=== PATIENT | female | born 1960 | race Caucasian/White ===

== ENCOUNTER 2019-12-09 20:00 | Inpatient (IN) | payer BC ==
[2019-12-09 21:58] VITALS: BMI 35.4
[2019-12-09] MEDS ORDERED: Labetalol HCl 100 MG/20 ML VIAL SLOW IVP PRN (21:58)
[2019-12-09] MEDS ORDERED: Acetaminophen 325 MG TAB PO PRN (21:58)
[2019-12-09] MEDS ORDERED: cloNIDine 0.1 MG TAB PO PRN (21:58)
[2019-12-09] MEDS ORDERED: hydrALAZINE 20 MG/ML VIAL SLOW IVP PRN (21:58)
[2019-12-09] MEDS ORDERED: HYDROcodone/Acetaminophen 5/325 mg Tablet PO PRN (21:58)
[2019-12-09] MEDS ORDERED: Guaifenesin DM 100-10/5 ML UDCUP PO PRN (21:58)
[2019-12-09] MEDS ORDERED: Electrolyte Replacement Protoc 1 EACH EACH FS SCH (22:00)
--- NOTE | 2019-12-09 22:11 | PDOC.HHP ---
Hospitalist HPI - History of Present Illness Abdominal pain History of Present Illness: Patient is a 59 year old female with PMH migraines, seizure disorder, history of stomach ulcers who presents as transfer from [place] [facility] for abdominal pain. She has gone to ED twice in last 2 days for abdominal pain, then left AMA, today presented again for same issue. Pain is sharp, epigastric, 6/10, constant, patient has not been able to hold down food for a week. She has a history of gastric ulcers, has been told to see GI but she has not followed up. She denies fevers, chills, melena, hematochezia, hematemesis. She denies nausea but if she eats anything she then vomits. No BM, but she thinks that is because of reduced PO intake. During her visits to [place] ER, she has had a RUQ US and a CT abdomen, which revealed fatty liver. Today at [place] ED, vitals unremarkable, labs significant for transaminitis with total bilirubin 2.4, AST 141, ALT 52, alkaline phosphatase 169. she recieved 2L IVF, sucralfate, protonix, reglan. They discussed case with GI Dr Luna who recommended EGD evaluation in morning by Dr Hammond, patient transferred here for GI consultation. Hospitalist ROS - Review of Systems Constitutional: denies: fever, chills, sweats, weakness, malaise, other Eyes: denies: pain, vision change, conjunctivae inflammation, eyelid inflammation, redness, other ENT: denies: ear pain, ear discharge, nose pain, nose discharge, nose congestion , mouth pain, mouth swelling, throat pain, throat swelling, other Respiratory: denies: cough, dry, shortness of breath, hemoptysis, SOB with excertion, pleuritic pain, sputum, wheezing, other Cardiovascular: denies: chest pain, palpitations, orthopnea, paroxysmal noc. dyspnea, edema, light headedness, other Gastrointestinal: reports: abdominal pain. denies: nausea, vomiting, diarrhea, constipation, melena, hematochezia, other Genitourinary: denies: dysuria, frequency, incontinence, hematuria, retention, other Musculoskeletal: denies: neck pain, shoulder pain, arm pain, back pain, hand pain, leg pain, foot pain Skin: denies: rash, lesions, cruz, bruising, other Neurological: denies: weakness, numbness, incoordination, change in speech, confusion, seizures, other All other systems reviewed; all pertinent +/- noted in HPI/Subj Hospitalist History - Past Medical History Other Medical History: migraines, seizure disorder, history of stomach ulcers - Past Surgical History Past Surgical History: reports: , Hysterectomy - Family History Family History: reports: no pertinent history - Social History Smoking Status: Former smoker Alcohol: reports: None Drugs: reports: none - Exam General Appearance: NAD, awake alert Eye: PERRL, anicteric sclera ENT: normocephalic atraumatic, no oropharyngeal lesions, moist mucosa Neck: supple, symmetric, no JVD, no thyromegaly, no lymphadenopathy, no carotid bruit Heart: RRR, no murmur, no gallops, no rubs, normal peripheral pulses Respiratory: CTAB, no wheezes, no rales, no ronchi, normal chest expansion, no tachypnea, normal percussion Gastrointestinal: soft, non-distended, normal bowel sounds, no palpable masses, no hepatomegaly, no splenomegaly, no bruit Gastrointestinal - other findings: mild diffuse tenderness to deep palpation Extremities: no cyanosis, no clubbing, no edema Skin: normal turgor, no lesions, no rashes Neurological: cranial nerve grossly intact, normal sensation to touch, no weakness, no focal deficits, no new deficit Musculoskeletal: normal tone, normal strength, no muscle wasting Psychiatric: normal affect, normal behavior, A&O x 3 Hospitalist Results - Labs Additional comment: all labs, imaging, ED documents reviewed from [facility], see HPI for pertinent positives Hospitalist H&P A/P - Plan Plan: Patient is a 59 year old female with PMH migraines, seizure disorder, history of stomach ulcers who presents as transfer from [place] [facility] for abdominal pain. # abdominal pain # history of stomach ulcers # transaminitis/acute liver failure transfer from [place] ED for epigastric pain x 1 week, unable to hold down food. Denies blood in stool or melena. at [place] ED she left AMA several times last few days, during those visits she had a RUQ US and a CT abdomen which revealed fatty liver. Today labs significant for transaminitis with tbili 2.4, AST 141, ALT 52, AKP 169. she recieved 2L IVF, sucralfate, protonix, reglan. They discussed case with GI Dr Luna who recommended EGD evaluation in morning by Dr Hammond, patient transferred here for GI consultation. She does have a history of stomach ulcers and did not follow up as recommended. - admit to floor - consult GI - protonix IV BID, continue carafate - PRN norco/morphine, deescalate as able - IVF - clear liquids, NPO past midnight - viral hepatitis panel # history of migraines # seizure disorder - resume home meds once med rec complete # DVT/GI ppx full code
[2019-12-09] MEDS: Sodium Chloride 0.9% 1,000 ML IV SCH (22:28)
[2019-12-09] MEDS ORDERED: Electrolyte Replacement Protocol FS PRN (22:30)
[2019-12-09] MEDS: Morphine 2 MG/ML VIAL SLOW IVP PRN (22:45)
[2019-12-09] MEDS ORDERED: Mag-Al 1200 mg/1200 mg/30 ML UDCUP PO PRN (23:57)
[2019-12-09] MEDS ORDERED: Morphine 2 MG/ML VIAL SLOW IVP SCH (23:59)
[2019-12-09] MEDS ORDERED: Mag-Al 1200 mg/1200 mg/30 ML UDCUP PO SCH (23:59)
[2019-12-10] MEDS: Morphine 2 MG/ML VIAL SLOW IVP PRN (04:42)
[2019-12-10] MEDS: Ondansetron PF 4 MG/2 ML Vial IVP PRN ×2 (04:48→18:24)
[2019-12-10 07:03] LABS: #Basophils 0.1 thou/uL (0.0-0.2); #Eosinphils 0.1 thou/uL (0.0-0.7); #Lymphocytes 1.3 thou/uL (1.20-3.40); #Monocytes 0.3 thou/uL (0.11-0.59); #Neutrophils 4.2 thou/uL (1.40-6.50); %Basophils 1.2 % (0.0-1.0); %Eosinophils 2.4 % (0.0-10.0); %Lymphocytes 21.4 % (21.0-51.0); %Monocytes 5.3 % (0.0-10.0); %Neutrophils 69.6 % (42.0-75.0); Hemoglobin 10.7 g/dL (12.0-16.0); Mean Corpuscular Hemoglobin 37.7 pg (27.0-31.0); Mean Platelet Volume 8.2 fL (7.4-10.4); Platelet Count 167 thou/uL (130-400); RBC Distribution Width 14.5 % (11.5-14.5); Red Blood Cell (RBC) Count 2.83 mill/uL (4.20-5.40); White Blood Cell (WBC) Count 6.1 thou/uL (4.8-10.8)
[2019-12-10] MEDS: Sucralfate 1 GM TAB PO SCH ×4 (07:14→21:28)
[2019-12-10] MEDS: Sodium Chloride 0.9% 1,000 ML IV SCH ×2 (07:18→17:14)
[2019-12-10 07:32] LABS: ALT (SGPT) 49 U/L (8-55); AST (SGOT) 144 U/L (5-34); Albumin 3.1 g/dL (3.5-5.0); Alkaline Phosphatase 157 U/L (40-110); Anion Gap 14 mmol/L (10-20); BUN (Urea Nitrogen) Less than 4 mg/dL (9.8-20.1); Bilirubin, Total 2.1 mg/dL (0.2-1.2); Calc. Creatinine Clearance 126 mL/min (70-130); Calcium 7.5 mg/dL (7.8-10.44); Carbon Dioxide 23 mmol/L (22-29); Chloride 101 mmol/L (98-107); Estimated GFR-MDRD Greater than 90; Glucose 84 mg/dL (70-105); Magnesium 2.1 mg/dL (1.6-2.6); Potassium 3.9 mmol/L (3.5-5.1); Protein, Total 6.5 g/dL (6.0-8.3); Sodium 134 mmol/L (136-145)
[2019-12-10 07:53] LABS: HBCM Index 0.14 S/CO (0-0.79); HBSAg Index 0.23 S/CO (0-0.99); Hep A IgM AB Non-Reactive (NonReactive); Hep A IgM S/CO 0.23 S/CO (0-0.79); Hep B Surf Ag Non-Reactive S/CO (NonReactive); Hep C IgG Ab Non-Reactive (NonReactive); Hep C Index 0.11 S/CO (0-0.79); Hepatitis B Core IgM Abs Non-Reactive (NonReactive)
[2019-12-10 08:58] LABS: MDiff Complete? YES; Macrocytosis MODERATE=16-30 cells (100X) (0-5/hpf); Platelet Morphology Comment Appears Adequate; Polychromasia SLIGHT = 2-3 cells (100X) (0-2/hpf)
[2019-12-10] MEDS ORDERED: Pantoprazole 40 MG VIAL IVP SCH (09:00)
[2019-12-10] MEDS ORDERED: PROPOFOL 200 MG/20 ML VIAL ONE (10:09)
[2019-12-10] MEDS ORDERED: EPHEDRINE 25 MG/5 ML SYRINGE ONE (10:09)
[2019-12-10] MEDS ORDERED: Succinylcholine Chloride 20 MG/ML 10 ml SYRINGE FS ONE (10:09)
[2019-12-10] MEDS ORDERED: Lidocaine 1% PF 5 ML VIAL ONE (10:09)
[2019-12-10] MEDS ORDERED: Midazolam HCl 2 mg/2 ml Vial ONE (10:44)
[2019-12-10] MEDS ORDERED: Fentanyl 100 MCG/2 ML VIAL ONE ×2 (11:17→12:18)
[2019-12-10] MEDS ORDERED: Ondansetron PF 4 MG/2 ML Vial ONE (12:05)
[2019-12-10] MEDS ORDERED: Promethazine HCl 25 MG/ML VIAL SLOW IVP PRN (12:11)
[2019-12-10] MEDS ORDERED: HYDROmorphone 2 MG/ML VIAL SLOW IVP PRN (12:11)
[2019-12-10] MEDS ORDERED: Meperidine HCl/PF 25 MG/ML VIAL SLOW IVP PRN (12:11)
[2019-12-10] MEDS ORDERED: Ketorolac Tromethamine 30 MG/ML VIAL IVP PRN (12:11)
[2019-12-10] MEDS ORDERED: Promethazine HCl 25 MG/ML VIAL IM PRN (12:11)
[2019-12-10] MEDS ORDERED: Ondansetron HCl/PF 4 MG/2 ML Vial IVP PRN (12:11)
[2019-12-10] MEDS: Pantoprazole 40 MG VIAL IVP SCH ×2 (13:05→21:28)
[2019-12-10] MEDS: Multivitamins, Adult 10 ML, Folic Acid 1 MG, Thiamine HCl 100 MG in Dextrose 5 %-0.45 %... IV SCH (14:57)
--- NOTE | 2019-12-10 15:37 | PDOC.HOSPP ---
- Subjective Encounter Date: 12/10/19 Encounter Time: 15:36 Subjective: Patient seen for follow-up regarding abdominal pain. Reports on and off abdominal pain. Denies fevers or chills. - Objective Vital Signs & Weight: Vital Signs (12 hours) Temp Pulse Resp BP Pulse Ox 12/10/19 11:45 98.0 F 76 20 143/80 H 94 L 12/10/19 08:00 98.4 F 71 20 111/77 95 12/10/19 04:40 98.2 F 71 18 129/81 95 Weight Admit Weight 194 lb 1.6 oz Weight 194 lb 1.6 oz I&O: 12/09/19 12/10/19 12/11/19 06:59 06:59 06:59 Intake Total 850 Balance 850 Result Diagrams: 12/10/19 06:44 12/10/19 06:44 Additional Labs: I reviewed patient's labs and MAR Hospitalist ROS - Review of Systems Constitutional: denies: fever, chills, sweats, weakness, malaise Cardiovascular: denies: chest pain, palpitations, orthopnea, paroxysmal noc. dyspnea, edema, light headedness Gastrointestinal: reports: abdominal pain. denies: nausea, vomiting, diarrhea, constipation, melena, hematochezia Genitourinary: denies: dysuria, frequency, incontinence, hematuria, retention Skin: reports: cruz. denies: rash, lesions, bruising All other systems reviewed; all pertinent +/- noted in HPI/Subj - Medication Medications: Active Medications Generic Name Dose Route Start Last Admin Trade Name Freq PRN Reason Stop Dose Admin Sodium Chloride 1,000 mls @ 100 mls/hr 12/09/19 22:15 12/10/19 07:18 Normal Saline 0.9% IV 1,000 mls .Q10H JONO Administration Multivitamins 10 ml/ Folic 1,011.2 mls @ 100 mls/hr 12/10/19 13:00 12/10/19 14:57 Acid 1 mg/ Thiamine HCl 100 mg IV 1,011.2 mls / Dextrose/Sodium Chloride Q24HR JONO Administration Ondansetron HCl 4 mg 12/09/19 21:58 12/10/19 04:48 Zofran IVP 4 mg Q6H PRN Administration Nausea/Vomiting, use 1st Pantoprazole Sodium 40 mg 12/10/19 09:00 12/10/19 13:05 Protonix IVP 40 mg Q12HR JONO Administration Sucralfate 1 gm 12/10/19 07:30 12/10/19 13:04 Carafate PO 1 gm ACHS JONO Administration - Exam General - other findings: Obese Eye: scleral icterus ENT: normocephalic atraumatic, no oropharyngeal lesions Neck: supple, symmetric, no thyromegaly, no lymphadenopathy Heart: RRR, no gallops, no rubs, normal peripheral pulses Respiratory: CTAB, no wheezes, no rales, no ronchi, normal chest expansion Gastrointestinal: soft, normal bowel sounds, no guarding, no rigidity, tender to palpation Extremities: no cyanosis Skin: no rashes Psychiatric: normal affect, normal behavior, oriented to person, oriented to place Hosp A/P (1) Abdominal pain Code(s): R10.9 - UNSPECIFIED ABDOMINAL PAIN Status: Acute (2) Transaminitis Code(s): R74.0 - NONSPEC ELEV OF LEVELS OF TRANSAMNS & LACTIC ACID DEHYDRGNSE Status: Chronic (3) Migraines Code(s): G43.909 - MIGRAINE, UNSP, NOT INTRACTABLE, WITHOUT STATUS MIGRAINOSUS Status: Chronic (4) Seizure disorder Code(s): G40.909 - EPILEPSY, UNSP, NOT INTRACTABLE, WITHOUT STATUS EPILEPTICUS Status: Chronic - Plan Status post EGD today, await findings. Continue IV PPI. Follow LFTs. Patient's INR was 1.8 on December 08, 2019. Work-up in progress to determine etiology of hepatic failure. Resume home medications once clarified.
[2019-12-10] MEDS ORDERED: hydrOXYzine Pamoate 25 mg Capsule PO PRN (15:41)
--- NOTE | 2019-12-10 16:39 | OP ---
DATE OF PROCEDURE: 12/10/2019 PREOPERATIVE DIAGNOSES: 1. Recurrent ER visits for epigastric pain. 2. Mildly elevated LFTs with normal ultrasound and CT scan except for fatty liver. POSTPROCEDURE DIAGNOSES: Normal EGD, antral biopsies taken for H pylori. RECOMMENDATIONS: 1. PPI therapy. 2. Workup abnormal liver enzymes. 3. Avoid alcohol. 4. Avoid NSAIDs. ANESTHESIA: TIVA. DESCRIPTION OF PROCEDURE: Patient explained the risks, benefits, possible complications of endoscopy including perforation, reaction to medication, aspiration. Informed consent was obtained. Patient was brought to the endoscopy suite, where she was sedated in a gradual fashion. Once she was comfortable, a bite block was placed in the incisural orifice. The endoscope was advanced into the esophagus, stomach, and second and third portions of the duodenum and slowly was removed. There was good visualization of the mucosa. There was no mass lesions or AV malformations. The esophagus, stomach, and duodenum were normal in first and second portions. There was normal stomach on retroflexion. There was normal distention of the stomach. There was mild antral gastritis. This would not explain the patient's symptoms. Biopsies were obtained for H pylori. The scope was removed. The patient tolerated the procedure well. There were no complications. Job ID: [id number]
[2019-12-10] MEDS: Promethazine HCl 12.5 MG in Sodium Chloride 0.9% 50 ML IVPB PRN (19:31)
[2019-12-10] MEDS ORDERED: Donepezil HCl 10 MG TAB PO SCH (21:00)
[2019-12-10] MEDS: cloNIDine 0.1 MG TAB PO SCH (21:41)
[2019-12-10] MEDS ORDERED: Lorazepam 2 MG/ML VIAL SLOW IVP SCH ×2 (22:30→22:45)
[2019-12-10] MEDS ORDERED: Morphine 2 MG/ML VIAL SLOW IVP SCH (22:30)
[2019-12-11] MEDS: Ondansetron PF 4 MG/2 ML Vial IVP PRN ×3 (00:22→13:02)
[2019-12-11] MEDS: Promethazine HCl 12.5 MG in Sodium Chloride 0.9% 50 ML IVPB PRN ×2 (01:20→08:22)
[2019-12-11] MEDS: Sodium Chloride 0.9% 1,000 ML IV SCH ×2 (01:50→15:50)
[2019-12-11] MEDS ORDERED: Simethicone Chewable 80 MG TAB PO PRN (03:29)
[2019-12-11] MEDS ORDERED: Simethicone Chewable 80 MG TAB PO SCH (03:30)
[2019-12-11 06:09] LABS: #Basophils 0.1 thou/uL (0.0-0.2); #Eosinphils 0.2 thou/uL (0.0-0.7); #Lymphocytes 1.4 thou/uL (1.20-3.40); #Monocytes 0.4 thou/uL (0.11-0.59); #Neutrophils 3.1 thou/uL (1.40-6.50); %Basophils 1.5 % (0.0-1.0); %Eosinophils 3.6 % (0.0-10.0); %Lymphocytes 27.2 % (21.0-51.0); %Monocytes 7.6 % (0.0-10.0); %Neutrophils 60.2 % (42.0-75.0); Hemoglobin 10.4 g/dL (12.0-16.0); Mean Corpuscular HGB CONC 32.5 g/dL (32.0-36.0); Mean Corpuscular Hemoglobin 38.9 pg (27.0-31.0); Mean Platelet Volume 8.1 fL (7.4-10.4); Platelet Count 130 thou/uL (130-400); RBC Distribution Width 14.4 % (11.5-14.5); Red Blood Cell (RBC) Count 2.68 mill/uL (4.20-5.40); White Blood Cell (WBC) Count 5.2 thou/uL (4.8-10.8)
[2019-12-11 06:35] LABS: ALT (SGPT) 45 U/L (8-55); AST (SGOT) 128 U/L (5-34); Albumin 3.1 g/dL (3.5-5.0); Alkaline Phosphatase 151 U/L (40-110); Anion Gap 15 mmol/L (10-20); BUN (Urea Nitrogen) Less than 4 mg/dL (9.8-20.1); Bilirubin, Direct 1.7 mg/dL (0.1-0.3); Bilirubin, Total 2.7 mg/dL (0.2-1.2); Calc. Creatinine Clearance 128 mL/min (70-130); Calcium 7.6 mg/dL (7.8-10.44); Carbon Dioxide 21 mmol/L (22-29); Chloride 105 mmol/L (98-107); Estimated GFR-MDRD Greater than 90; Glucose 90 mg/dL (70-105); Potassium 3.5 mmol/L (3.5-5.1); Protein, Total 6.1 g/dL (6.0-8.3); Sodium 137 mmol/L (136-145)
[2019-12-11] MEDS ORDERED: Magnesium 2 GM/50 ML 2 GM in Premix Bag 1 BAG IVPB SCH (07:15)
[2019-12-11] MEDS ORDERED: Ketorolac Tromethamine 30 MG/ML VIAL IVP PRN (07:29)
[2019-12-11] MEDS ORDERED: Potassium Chloride 20 MEQ TAB PO SCH (07:30)
[2019-12-11] MEDS: cloNIDine 0.1 MG TAB PO SCH (08:34)
[2019-12-11] MEDS: Sucralfate 1 GM TAB PO SCH ×2 (08:34→11:32)
[2019-12-11] MEDS ORDERED: Enoxaparin Sodium 40 MG/0.4 ML SYRINGE SC SCH (09:00)
[2019-12-11] MEDS ORDERED: Escitalopram Oxalate 20 mg Tablet PO SCH (09:00)
[2019-12-11] MEDS: Pantoprazole 40 MG VIAL IVP SCH (09:37)
[2019-12-11] MEDS ORDERED: Morphine 2 MG/ML VIAL SLOW IVP SCH (12:45)
--- NOTE | 2019-12-11 13:29 | NM ---
HEPATOBILIARY SCAN: HISTORY: A 59-year-old female with epigastric abdominal pain. No gallstones on ultrasound of 12/08/2019. RADIOPHARMACEUTICAL: 4.5 mCi Technetium 99m-mebrofenin injected intravenously. FINDINGS: There is good tracer extraction by the liver with prompt excretion into the biliary tract and small b owel loops and normal filling of the gallbladder. The calculated gallbladder ejection fraction following a 30-minute infusion of 1.7 mcg of CCK-8 measu res 94%. IMPRESSION: Normal exam. POS: AH
[2019-12-11] MEDS ORDERED: traMADol HCl 50 MG TAB PO PRN (14:23)
[2019-12-11 15:11] VITALS: BP 120/78; TEMP 98.5
[2019-12-11 15:36] LABS: ANA Symphony (Qualitative) Negative (Negative); ANA Symphony (Quantitative) 0.1 Ratio (< 0.7 Negative); EliA Vaculitis New Method **** NEW METHOD ****; Mitochondrial Ab 0.8 U/mL (<4 Negative); dsDNA IgG Antibody Less than 0.5 IU/mL (<10 Negative)
[2019-12-11] MEDS: Multivitamins, Adult 10 ML, Folic Acid 1 MG, Thiamine HCl 100 MG in Dextrose 5 %-0.45 %... IV SCH (15:50)
--- NOTE | 2019-12-12 02:30 | DIS ---
DATE OF ADMISSION: 12/09/2019 DATE OF DISCHARGE: 12/11/2019 PRIMARY CARE PROVIDER: Dr. Edward Flores. DISCHARGE DIAGNOSES: 1. Abdominal pain. 2. Abnormal liver function tests. 3. Fatty liver. 4. Mild antral gastritis. 5. Biopsy negative for H. pylori. CONDITION OF PATIENT ON THE DAY OF DISCHARGE: Stable. I assessed Ms. Meza on the day of discharge. She denies any chest pain or shortness of breath. Vital signs are stable. S1 and S2 are heard, regular. Lungs are clear to auscultation bilaterally. CONSULTATIONS DURING THIS HOSPITALIZATION: Gastroenterology, Dr. Hammond. HOSPITAL COURSE: Ms. Meza is a pleasant 59-year-old lady, who was admitted to [facility] on December 09, 2019, for abdominal pain and abnormal liver function tests. She underwent an EGD on December 10, 2019. She was found to have mild antral gastritis. Her PPI dose was increased to b.i.d. She has been advised to avoid alcohol and nonsteroidal anti-inflammatory agents. On December 11, 2019, she had HIDA scan, which was normal. At the time of this dictation, alpha-1 antitrypsin, alpha-fetoprotein, STEFANY screen, smooth muscle antibody, ceruloplasmin and mitochondrial antibody tests are pending. She is advised to follow up with Dr. Hammond for results of the same. She is also advised to follow up with primary care provider and have her liver function tests checked in 1 week. POST-ACUTE CARE FOLLOWUP: With primary care provider in 3 days. ACTIVITY: No restrictions. DIET: Heart healthy. DISCHARGE DESTINATION: Home. TIME SPENT: Total amount of time spent coordinating this discharge: 32 minutes. DISCHARGE MEDICATIONS: The patient has been started on; 1. Folic acid 1 mg daily. 2. Protonix dose increased to 40 mg two times a day. 3. Thiamine 100 mg daily. 4. Tramadol 50 mg every eight 8 hours as needed, 15 doses to be dispensed. Otherwise, no change was made to her pre-admission home medications, which include; 1. Catapres 0.1 mg two times a day. 2. Diazepam 10 mg three times a day. 3. Aricept 10 mg at bedtime. 4. Lexapro 20 mg daily. 5. Metoclopramide 5 mg three times a day. 6. Phenergan 25 mg every 4 hours as needed. 7. Hydroxyzine 25 mg two times a day as needed. Job ID: [id number]
--- NOTE | 2019-12-12 04:48 | PQF ---
CLINICAL DOCUMENTATION CLARIFICATION FORM: Dear DrCody: Dov Carson Date / Time: 12/12/2019446 Please exercise your independent, professional judgment in responding to the clarification form. Clinical indicators are provided on the bottom of this form for your review Please check appropriate box(es) to clarify if the following diagnosis has been ruled in our ruled out: Acute Liver Failure [ ] Ruled in diagnosis [ ] Continue to treat [ ] Resolved [ ] Ruled out diagnosis [ ] Improving [ ] Cannot rule out diagnosis [ x ] Other diagnosis _acute hepatitis, workup in progress [ ] Unable to determine Physician Signature: Date/Time: For continuity of documentation, please document condition throughout progress notes and discharge summary. Thank You. To be completed by CDI/Coding staff for physician review: Present Clinical Indicators - Signs / Symptoms / Labs Results and Location in Medical Record [X] Total Bilirubin 2.1, Direct Bilirubin 1.0, AST 144, ALT 49 Laboratory 12/09 [X] BP 137/73, pulse 69, Resp 18, Temp 97.9 Vital signs 12/08 [X] Presented with abdominal pain H&P p1 12/08 Dr Pacheco [X] Labs significant for transaminitis H&P p1 12/08 Dr Pacheco [X] Acute liver failure H&P p3 12/08 Dr Pacheco [X] CT abdomen revealed fatty liver H&P p3 12/08 Dr Pacheco Present Risk Factors Results and Location in Medical Record [X] 59 year-old Female H&P p1 12/08 Dr Pacheco [X] Hx of stomahc ulcers H&P p1 12/08 Dr Pacheco [X] Former Smoker H&P p1 12/08 Dr Pacheco [X] Fatty Liver H&P p3 12/08 Dr Pacheco Present Treatments Results and Location in Medical Record [X] IV Zofran 4 mg MAR 12/09 [X] IV Protonix 40 mg JUN 07 [X] IV Morphine 2 mg JUN 07 [X] Liver function test Laboratory 12/09 CDS/Community Health Nurse Supervisor Signature: Marlena Forde Phone #: ext [phone] Date/Time: 12/12/2019446 This is a permanent part of the Medical Record [facility]
--- NOTE | 2019-12-12 04:49 | PQF ---
CLINICAL DOCUMENTATION CLARIFICATION FORM: Dear DrCody: Dov Carson Date / Time: 12/12/2019447 Please exercise your independent, professional judgment in responding to the clarification form. Clinical indicators are provided on the bottom of this form for your review In your clinical opinion based on clinical findings below, can you please identify the etiology of Abdominal pain if due to: Please check appropriate box(es): [ x ] Mild Antral Gastritis [ ] Fatty Liver [ ] Other diagnosis [ ] Unable to determine Physician Signature: Date/Time: For continuity of documentation, please document condition throughout progress notes and discharge summary. Thank You. To be completed by CDI/Coding staff for physician review: Present Clinical Indicators - Signs / Symptoms / Labs Results and Location in Medical Record [X] Total Bilirubin 2.1, Direct Bilirubin 1.0, AST 144, ALT 49 Laboratory 12/09 [X] BP 137/73, pulse 69, Resp 18, Temp 97.9 Vital signs 12/08 [X] Presented with abdominal pain H&P p1 12/08 Dr Pacheco [X] Labs significant for transaminitis H&P p1 12/08 Dr Pacheco [X] Acute liver failure H&P p3 12/08 Dr Pacheco [X] CT abdomen revealed fatty liver H&P p3 12/08 Dr Pacheco [X] There was mild antral gastritis. This would not explain the pt symptoms Operative report Dr Hammond 12/09 Present Risk Factors Results and Location in Medical Record [X] 59 year-old Female H&P p1 12/08 Dr Pacheco [X] Hx of stomahc ulcers H&P p1 12/08 Dr Pacheco [X] Former Smoker H&P p1 12/08 Dr Pacheco Present Treatments Results and Location in Medical Record [X] IV Zofran 4 mg JUN 07 [X] IV Protonix 40 mg JUN 07 [X] IV Morphine 2 mg JUN 07 [X] EGD with Antral Biopsy Operative report Dr Hammond 12/09 CDS/Funeral Home Assistant Signature: Marlena Forde Phone #: ext [phone] Date/Time: 12/12/2019447 This is a permanent part of the Medical Record MTDD
[2019-12-13 19:13] LABS: Smooth Muscle Total ABS 7 Units (0-19)
[2019-12-15 15:38] LABS: A1 Antitrypsin Phenotype Inter MS (.); Alpha-1-Antitrypsin 146 mg/dL (101-187)
== END 2019-12-11 15:49 | disposition home or self-care (01) | DRG 391 ==
LOC: T4-A 21:52
PROVIDERS: ADMIT Internal Medicine; ATTEND Internal Medicine
PROC: 0DB78ZX Excision of Stomach, Pylorus, Via Natural or Artificial Opening Endoscopic, Diagnostic (ICD-10-PCS; principal; 2019-12-10)
DX: K29.70 Gastritis, unspecified, without bleeding (principal); K72.00 Acute and subacute hepatic failure without coma; K76.0 Fatty (change of) liver, not elsewhere classified; G43.909 Migraine, unspecified, not intractable, without status migrainosus; G40.909 Epilepsy, unspecified, not intractable, without status epilepticus; E66.9 Obesity, unspecified; Z90.710 Acquired absence of both cervix and uterus; Z68.35 Body mass index [BMI] 35.0-35.9, adult; Z79.899 Other long term (current) drug therapy
CPT/HCPCS: 36415; 78227; 80048; 80074; 80076; 82103; 82104; 82105; 82390; 83516; 83735; 85025; 86038; 86225; 88305; 88312; A9537; C9113; J1650; J2060; J2250; J2270; J2405; J2550; J2704; J3010; J3411; J3475; J7042; Q0177

== ENCOUNTER 2020-01-16 17:39 | Emergency (ER) | payer BC ==
[2020-01-16] MEDS ORDERED: Lidocaine Viscous Sol 2% 15 ml UD Cup ONE (18:40)
[2020-01-16] MEDS ORDERED: Pantoprazole 40 MG VIAL ONE (18:41)
[2020-01-16] MEDS ORDERED: Mag-Al 1200 mg/1200 mg/30 ML UDCUP ONE (18:41)
[2020-01-16] MEDS ORDERED: Metoclopramide HCl 10 MG/2 ML VIAL ONE (18:41)
[2020-01-16 19:16] LABS: #Eosinphils 0.1 thou/uL (0.0-0.7); #Lymphocytes 1.2 thou/uL (1.20-3.40); #Monocytes 0.3 thou/uL (0.11-0.59); #Neutrophils 6.3 thou/uL (1.40-6.50); %Basophils 0.6 % (0.0-1.0); %Eosinophils 1.4 % (0.0-10.0); %Lymphocytes 14.8 % (21.0-51.0); %Monocytes 3.9 % (0.0-10.0); %Neutrophils 79.4 % (42.0-75.0); Hemoglobin 12.6 g/dL (12.0-16.0); Mean Corpuscular HGB CONC 35.4 g/dL (32.0-36.0); Mean Corpuscular Hemoglobin 39.9 pg (27.0-31.0); Mean Platelet Volume 7.5 fL (7.4-10.4); Platelet Count 197 thou/uL (130-400); Red Blood Cell (RBC) Count 3.16 mill/uL (4.20-5.40); White Blood Cell (WBC) Count 7.9 thou/uL (4.8-10.8)
[2020-01-16 19:29] LABS: ALT (SGPT) 83 U/L (8-55); AST (SGOT) 219 U/L (5-34); Albumin 3.8 g/dL (3.5-5.0); Alcohol Less than 10 mg/dL (Less than 10); Alkaline Phosphatase 213 U/L (40-110); Anion Gap 20 mmol/L (10-20); BUN (Urea Nitrogen) Less than 4 mg/dL (9.8-20.1); Bilirubin, Total 2.8 mg/dL (0.2-1.2); Calc. Creatinine Clearance 0 mL/min (70-130); Calcium 9.1 mg/dL (7.8-10.44); Carbon Dioxide 24 mmol/L (22-29); Chloride 97 mmol/L (98-107); Estimated GFR-MDRD 87; Globulin 4.1 g/dL (2.4-3.5); Glucose 112 mg/dL (70-105); Lipase 21 U/L (8-78); Magnesium 1.9 mg/dL (1.6-2.6); Potassium 4.5 mmol/L (3.5-5.1); Protein, Total 7.9 g/dL (6.0-8.3); Sodium 136 mmol/L (136-145)
[2020-01-16] MEDS ORDERED: Ondansetron PF 4 MG/2 ML Vial ONE (19:34)
[2020-01-16 20:57] LABS: Bacteria/HPF 4+ HPF (None Seen); Bilirubin Negative (Negative); Blood, Urine Negative (Negative); Clarity Clear (Clear); Glucose, Urine (Dipstick) Normal (Negative); Ketone, Urine Negative (Negative); Leukocyte 500 Leu/uL (Negative); Nitrite Negative (Negative); Protein, Urine (Dipstick) Negative (Neg-Trace); RBC/HPF 0-3 HPF (0-3); Renal Epithelial 0-3 HPF (None Seen); Specific Gravity, Urine 1.005 (1.002-1.036); Squamous Epithelial 0-3 HPF (0-3); Urobilinogen Normal mg/dL (Less than 2); WBC/HPF 21-50 HPF (0-3)
[2020-01-16] MEDS ORDERED: HYDROcodone/Acetaminophen 5/325 mg Tablet ONE (21:18)
[2020-01-16] MEDS ORDERED: Ondansetron ODT 4 MG TAB ONE (21:20)
[2020-01-16] MEDS ORDERED: Dicyclomine 20 MG TAB ONE (21:27)
== END 2020-01-16 21:31 | disposition home or self-care (01) ==
LOC: ERS 17:39
DX: N39.0 Urinary tract infection, site not specified (principal); G89.29 Other chronic pain; R10.13 Epigastric pain; R11.2 Nausea with vomiting, unspecified; Z76.5 Malingerer [conscious simulation]; G43.909 Migraine, unspecified, not intractable, without status migrainosus; F41.9 Anxiety disorder, unspecified; F32.9 Major depressive disorder, single episode, unspecified; F17.200 Nicotine dependence, unspecified, uncomplicated
CPT/HCPCS: 80053; 80307; 81003; 81015; 83690; 83735; 84484; 85025; 93005; 96374; 96375; C9113; J2405; J2765; Q0162